=== PATIENT | female | born 1990 | race Caucasian/White ===

== ENCOUNTER 2017-08-04 00:39 | Emergency (ER) | payer OTHER, MEDICAID ==
[~2017-08-04] VITALS: Ht 162.6 cm; Wt 86.0 kg
[2017-08-04 05:23] VITALS: BP 121/56
== END 2017-08-04 05:26 | disposition home or self-care (01) ==
LOC: ER 00:39
DX: B35.4 Tinea corporis (principal); Z98.890 Other specified postprocedural states; Z90.49 Acquired absence of other specified parts of digestive tract; Z88.0 Allergy status to penicillin
CPT/HCPCS: 99283